=== PATIENT | male | born 1955 | race African-American/Black ===

== ENCOUNTER 2022-07-03 17:55 | Emergency (ER) | payer MEDICARE, MEDICAID ==
[~2022-07-03] VITALS: Ht 175.3 cm; Wt 91.0 kg
[2022-07-03] MEDS ORDERED: KETOROLAC 60MG/2ML VIAL IM ONE (18:30)
[2022-07-03 19:05] VITALS: BP 148/85
[2022-07-03] MEDS ORDERED: CYCL10TA21 MT (19:48)
[2022-07-03] MEDS ORDERED: IBUP-2029 MT (19:48)
== END 2022-07-03 21:35 | disposition home or self-care (01) ==
LOC: ER 17:55
DX: S20.212A Contusion of left front wall of thorax, initial encounter (principal); S20.222A Contusion of left back wall of thorax, initial encounter; R10.9 Unspecified abdominal pain; I11.0 Hypertensive heart disease with heart failure; I50.9 Heart failure, unspecified; E11.9 Type 2 diabetes mellitus without complications; W01.0XXA Fall on same level from slipping, tripping and stumbling without subsequent striking against object, initial encounter; Y93.89 Activity, other specified; Y92.89 Other specified places as the place of occurrence of the external cause; Y99.8 Other external cause status
CPT/HCPCS: 71046; 96372; 99283; J1885